=== PATIENT | female | born 1965 | race Two or more races ===

== ENCOUNTER 2025-03-29 09:06 | Outpatient (CLI) | payer MEDICAID, SELFPAY ==
--- NOTE | 2025-03-29 08:00 | XR_ITS ---
Examination: CT abdomen and pelvis without contrast. Coronal 3-D reconstructions. Sagittal 2-D reconstructions. Date and time of exam:March 29, 2025 0922 hours INDICATIONS: History renal mass CTDI: vol (mGy): 6.69 DLP: (mGycm): 338 Technique: Axial images of the abdomen have been obtained, 3 mm slice thickness Intravenous contrast material has not been administered. Low dose protocols were performed. One or more of the following dose reduction techniques were used; automated exposure control, adjustment of the mA and/or KV according to patient size, use of iterative reconstruction technique. Findings: No focal liver or splenic lesions Absent gallbladder No pancreatic or adrenal mass 38 mm solid mass anterior left kidney, bowel surrounds this mass precluding safe biopsy Aorta is not enlarged No free fluid in the abdomen Normal appendix No bowel obstruction Contracted urinary bladder IMPRESSION: 38 mm solid mass anterior left kidney
[2025-03-29 08:03] VITALS: BP 155/82; PULSE 72; RESP 20; TEMP 36.4; O2SAT 100
[2025-03-29 08:06] LABS: Blood Urea Nitrogen 13 mg/dL (9-23); Creatinine (Component) 0.6 mg/dL (0.6-1.3); eGFR > 60 See Note
[2025-03-29 08:08] LABS: Basophils # (Auto) 0.0 Thou/mm3 (0.0-0.2); Basophils % (Auto) 0 % (0-2.5); Eosinophils # (Auto) 0.1 Thou/mm3 (0.0-0.5); Eosinophils % (Auto) 1 % (0-10); Hematocrit 39.4 % (36.0-46.0); Hemoglobin 14.5 g/dL (12.0-16.0); Immature Granulocytes Auto 0.02 Thou/mm3 (0.00-0.00); Lymphocytes # (Auto) 2.3 Thou/mm3 (1.0-4.8); Lymphocytes % (Auto) 39 % (10-50); Mean Corpuscular HGB Conc 36.8 g/dl (31.0-37.0); Mean Corpuscular Hemoglobin 32.2 pg (25.0-35.0); Mean Corpuscular Volume 88 fL (80-100); Monocytes # (Auto) 0.5 Thou/mm3 (0.0-0.8); Monocytes % (Auto) 8 % (0-12); Neutrophils # (Auto) 3.0 Thou/mm3 (1.8-7.7); Neutrophils % (Auto) 51 % (37-80); Nucleated Red Blood Cell # 0.00 Thou/mm3 (0.00-0.00); Nucleated Red Blood Cell % 0 /100 WBC (0); Platelet Count 176 Thou/mm3 (140-440); RDW Standard Deviation 37.7 fL (36.4-46.3); Red Blood Count 4.50 Miln/mm3 (4.00-5.20); White Blood Count 5.9 Thou/mm3 (3.6-11.0)
[2025-03-29 08:30] LABS: INR 1.0 (0.9-1.3); Partial Thromboplastin Time 24.1 Seconds (22.0-36.0); Prothrombin Time 10.8 Seconds (9.0-12.2)
--- NOTE | 2025-03-29 09:54 | PC.NURSE ---
ct abdomen without contrast performed on this patient, however; kidney biopsy not perform due to high risk to perforate bowel.
--- NOTE | 2025-03-29 10:19 | PC.NURSE ---
Patient left unit walking scorted by staff to the lobby post CT of the abdomen with Pelvis. Renal mass biopsy not performed due to risk being higher than benefits No acute distress noted. Denies pain and discomfort. As per patient, daughter (Winnie) will pick her up.
--- NOTE | 2025-03-30 11:02 | PC.NURSE ---
CT scan of the abdomen was done and images sent to DR Narayanan, DR gave me a call back and said that the kidney biopsy cannot be performed due to the fact that there are a lot of bowels, i explained to the patient and patient agreed.
== END 2025-03-29 10:22 | disposition home or self-care (01) ==
PROVIDERS: Radiology Diagnostic Radiology; PCP Nurse Practitioner; Referring Provider Nurse Practitioner; Visit Provider Nurse Practitioner
DX: N28.89 Other specified disorders of kidney and ureter (principal)
CPT/HCPCS: 36415; 74176; 82565; 84520; 85025; 85610; 85730